=== PATIENT | female | born 1970 | race African-American/Black ===

== ENCOUNTER 2016-12-08 18:05 | Observation (INO) | payer MEDICARE, MEDICAID ==
[2016-12-08 18:47] LABS: #Basophils 0.1 thou/uL (0.0-0.2); #Eosinphils 0.2 thou/uL (0.0-0.7); #Lymphocytes 2.9 thou/uL (1.20-3.40); #Monocytes 1.1 thou/uL (0.11-0.59); #Neutrophils 5.9 thou/uL (1.40-6.50); %Basophils 0.7 % (0.0-1.0); %Eosinophils 1.7 % (0.0-10.0); %Lymphocytes 28.6 % (21.0-51.0); %Monocytes 10.9 % (0.0-10.0); Hematocrit 45.5 % (36.0-47.0); Mean Platelet Volume 6.4 fL (7.4-10.4); Red Blood Cell (RBC) Count 5.31 mill/uL (4.20-5.40); White Blood Cell (WBC) Count 10.1 thou/uL (4.8-10.8)
--- NOTE | 2016-12-08 18:52 | RAD ---
UPRIGHT PORTABLE CHEST ONE VIEW: 12/08/16 HISTORY: 46-year-old female with cough and shortness of breath. COMPARISON: 08/19/12. Heart size is normal. The lungs are clear of acute process. No confluent pneumonia or overt edema. IMPRESSION: No acute intrathoracic disease. Stable tracheostomy. Stable from prior study. POS: RAMIN
[2016-12-08 18:54] LABS: PTT 25.6 SEC (22.9-36.1); Prothrombin Time 13.4 SEC (12.0-14.7)
[2016-12-08 19:04] LABS: ALT (SGPT) 19 U/L (8-55); AST (SGOT) 19 U/L (5-34); Alkaline Phosphatase 146 U/L (40-150); Anion Gap 14 mmol/L (10-20); BUN (Urea Nitrogen) 13 mg/dL (7.0-18.7); Bilirubin, Total 0.2 mg/dL (0.2-1.2); Calc. Creatinine Clearance 0 mL/min (70-130); Carbon Dioxide 26 mmol/L (22-29); Chloride 105 mmol/L (98-107); Estimated GFR-MDRD 89; Globulin 4.5 g/dL (2.4-3.5); Protein, Total 8.6 g/dL (6.0-8.3)
[2016-12-08 19:11] LABS: Troponin I Less than 0.010 ng/mL (< 0.028)
--- NOTE | 2016-12-08 23:11 | PDOC.EVN ---
Event Note - Event Note Event Note: [id number] h&p dictated 2. SVT 2. HTN uncontrolled 3. Chronic respiratory failure 4. H/O CHF PLAN: SEE ORDERS
[2016-12-08] MEDS ORDERED: Azithromycin 500 MG VIAL ONE (23:16)
[2016-12-08] MEDS ORDERED: Acetaminophen 325 MG TAB PO PRN (23:34)
[2016-12-08] MEDS ORDERED: HYDROcodone/Acetaminophen 5/325 mg Tablet PO PRN (23:34)
[2016-12-08] MEDS ORDERED: cloNIDine 0.1 MG TAB PO PRN (23:37)
[2016-12-08] MEDS ORDERED: Sodium Chloride 0.9% 1,000 ML IV SCH (23:45)
[2016-12-09 00:28] VITALS: BMI 53.4
[2016-12-09 00:51] LABS: Troponin I 0.011 ng/mL (< 0.028)
[2016-12-09] MEDS ORDERED: Benzonatate 100 MG CAP PO PRN (00:55)
[2016-12-09] MEDS ORDERED: Carvedilol 25 MG TAB PO SCH ×2 (01:00→08:00)
[2016-12-09] MEDS ORDERED: cloNIDine 0.1 MG TAB PO SCH (01:00)
[2016-12-09 04:30] LABS: #Eosinphils 0.1 thou/uL (0.0-0.7); #Monocytes 0.9 thou/uL (0.11-0.59); #Neutrophils 6.6 thou/uL (1.40-6.50); %Basophils 0.2 % (0.0-1.0); %Eosinophils 1.1 % (0.0-10.0); %Lymphocytes 21.1 % (21.0-51.0); %Monocytes 9.3 % (0.0-10.0); Hematocrit 40.3 % (36.0-47.0); Mean Platelet Volume 6.4 fL (7.4-10.4); Red Blood Cell (RBC) Count 4.66 mill/uL (4.20-5.40); White Blood Cell (WBC) Count 9.6 thou/uL (4.8-10.8)
[2016-12-09 04:49] LABS: Anion Gap 11 mmol/L (10-20); BUN (Urea Nitrogen) 10 mg/dL (7.0-18.7); Calc. Creatinine Clearance 189 mL/min (70-130); Calcium 11.1 mg/dL (7.8-10.44); Carbon Dioxide 26 mmol/L (22-29); Chloride 106 mmol/L (98-107); Estimated GFR-MDRD Greater than 90
--- NOTE | 2016-12-09 06:46 | HP ---
DATE OF ADMISSION: 12/08/2016 CHIEF COMPLAINT: Dyspnea. HISTORY OF PRESENT ILLNESS: Patient is a 46-year-old female with past medical history of CHF, chronic respiratory failure, chronic trach, obstructive sleep apnea, hypertension, came to the ER because of tracheostomy clogged up. Patient says she is having diffuse secretions from the trach site. This evening her trach was clogged. She tried to use the suction at home, but it did not helped her and the patient started having cough as well as dyspnea also , so patient heart rate elevated up to 190, so patient was brought to the ER. Upon ER arrival, the patient had tracheal suction. Patient breathing did improve, cough improved, heart rate slowed down to 100. Patient denies any chest pain, denies any palpitations, denies any dizziness. She thinks her heart rate increased because of the coughing. Denies any fever, denies any chills. Denies any nausea. Denies any vomiting. PAST MEDICAL HISTORY: As per HPI. PAST SURGICAL HISTORY: , tracheostomy. FAMILY HISTORY: Positive for high blood pressure. SOCIAL HISTORY: Denies smoking, denies alcohol, denies any drugs. MEDICATIONS: Reviewed. REVIEW OF SYSTEMS: Constitutional: Denies any fever, denies any chills. Eyes : Denies any vision problems. Ears: Denies any hearing loss. Neck: Denies any neck pain. Cardiovascular system: Denies any chest pain. Denies any palpitations. Respiratory system: Positive for cough, positive for tracheal secretions. Cranial nerve system: Denies syncope. Psychiatric: Denies depression, denies anxiety. Integumentary: Denies any rash. Musculoskeletal: Denies any joint deformities. All other review of systems are reviewed and are negative. PHYSICAL EXAMINATION: CONSTITUTIONAL/VITAL SIGNS: At the time of H and P performed, blood pressure is 200/110, afebrile, heart rate 105. GENERAL APPEARANCE: This patient appears tired. HEENT: Anterior nares patent. Nose normal. Ears: Normal. Teeth intact. Tongue is moist. NECK: Positive for tracheostomy. CARDIOVASCULAR SYSTEM: S1, S2 present. Tachycardic, no murmurs, no rubs, no gallops. RESPIRATORY SYSTEM: Positive for crackles. Positive for rhonchi. No wheezing , no accessory muscle use seen. GASTROINTESTINAL: Abdomen is distended, soft, nontender, no guarding, no organomegaly, no masses felt. MUSCULOSKELETAL: No edema. INTEGUMENTARY: No rashes seen. PSYCHIATRIC: Mood is appropriate at this time. CRANIAL NERVES SYSTEM: Cranial nerves intact. Follows commands. Strength intact, sensory intact. LABORATORY DATA: At the time of H\T\P performed. white count 10.1, hemoglobin 14, platelet count is 483. PT 13.4, INR 1. D-dimer 0.27. Chest x-ray, no acute thoracic disease seen. ASSESSMENT AND PLAN: The patient is a 46-year-old female: 1. Tachycardia, appears to be SVT, resolved, probably secondary to clogged trach. Monitor heart rate closely. Will check d dimer. We will check BMP and mag level in the a.m. 2. Hypertension, uncontrolled. Continue home blood pressure medications. We will start patient on some Coreg at 6.25 b.i.d. also. 3. Status post history of trach plus chronic respiratory failure. Continue trach care. Continue breathing treatments. Monitor respiratory status closely. 4. History of hypertension. Continue blood pressure medications. 5. History of congestive heart failure. Continue home medications. Case was discussed in detail with the patient. Patient is FULL CODE. If patient is stable overnight, we will send patient home in a.m. MTDD
[2016-12-09] MEDS ORDERED: Potassium Chloride 8 MEQ TAB PO SCH (08:00)
[2016-12-09 08:07] VITALS: BP 150/92; TEMP 98.7
[2016-12-09] MEDS ORDERED: Furosemide 40 MG TAB PO SCH (09:00)
[2016-12-09] MEDS ORDERED: Amlodipine 10 MG TAB PO SCH (09:00)
[2016-12-09] MEDS ORDERED: hydrALAZINE 25 MG TAB PO SCH (09:00)
[2016-12-09] MEDS ORDERED: Famotidine 20 MG TAB PO SCH (09:00)
[2016-12-09] MEDS ORDERED: cloNIDine 0.2 MG TAB PO SCH (09:00)
[2016-12-09] MEDS ORDERED: Heparin 5,000 UNITS/ML VIAL SC SCH (09:00)
--- NOTE | 2016-12-09 11:19 | PDOC.PN ---
- Subjective Encounter Start Date: 12/09/16 Encounter Start Time: 11:17 Patient seen at bedside. No overnight events, no chest pain/SOB, no further secretions. - Objective MAR Reviewed: Yes Vital Signs & Weight: Vital Signs (12 hours) Temp Pulse Resp BP BP Pulse Ox 12/09/16 08:10 98.7 F 79 16 12/09/16 08:00 98.7 F 79 16 150/92 H 97 12/09/16 03:56 98.5 F 84 136/92 H 98 12/09/16 01:10 164/101 H 12/09/16 00:38 113 H 180/110 H 12/08/16 23:57 99 F 105 H 20 175/104 H 99 Weight Weight 264 lb 9.6 oz I&O: 12/08/16 12/09/16 12/10/16 06:59 06:59 06:59 Intake Total 574 Output Total 300 Balance 274 Result Diagrams: 12/09/16 03:56 12/09/16 03:56 Phys Exam - Physical Examination Constitutional: NAD Obese individual Trach in place Neck: no JVD Respiratory: clear to auscultation bilateral Cardiovascular: RRR Gastrointestinal: soft Musculoskeletal: pulses present Neurological: moves all 4 limbs Psychiatric: A&O x 3 Dx/Plan (1) Tachycardia Code(s): R00.0 - TACHYCARDIA, UNSPECIFIED Status: Resolved (2) Tracheostomy complication, unspecified Code(s): J95.00 - UNSPECIFIED TRACHEOSTOMY COMPLICATION Status: Resolved (3) Hypertension Code(s): I10 - ESSENTIAL (PRIMARY) HYPERTENSION Status: Chronic (4) Obesity Code(s): E66.9 - OBESITY, UNSPECIFIED Status: Chronic - Plan cont current plan of care, plan discussed w/ family, respiratory therapy * No further tachycardia. No chest pain. After speaking with the patient this seemed to be transient due to anxiety over sputum clearance. Currently no fevers , no further tachycardia or symptoms. * Add coreg * Duonebs * D/C Home * To f/u with Dr. Gonzales at [facility]
--- NOTE | 2016-12-09 16:11 | DIS ---
DATE OF OBSERVATION AND PLACEMENT: 12/08/2016 DATE OF DISCHARGE: 12/09/2016 DISCHARGE DISPOSITION: Home. DISCHARGE FOLLOWUP: With Dr. Gonzales. Patient states she will make her own appointment. DISCHARGE DIAGNOSES: 1. Tachycardia secondary to anxiety. 2. Increased secretions from her tracheostomy. 3. Hypertension. 4. Obesity. 5. History of tracheostomy. 6. Obstructive sleep apnea. DISCHARGE MEDICATIONS: 1. Amlodipine 10 mg p.o. daily. 2. Atorvastatin 20 mg p.o. at bedtime. 3. Lasix 40 mg p.o. daily. 4. Coreg 6.25 mg p.o. b.i.d. 5. Xopenex p.r.n. 6. Potassium chloride 8 mEq p.o. daily. 7. Catapres 0.2 mg p.o. t.i.d. 8. Hydralazine 50 mg p.o. t.i.d. INPATIENT CONSULTATIONS: None. INPATIENT RADIOGRAPHIC EXAMINATIONS: Chest x-ray, which revealed no acute intrathoracic disease. T here is a stable tracheostomy. There was no acute process. INPATIENT PROCEDURES: None. BRIEF HOSPITAL COURSE: Ms. Palma Leonardo is a 46-year-old female with a past medical history of tracheostomy, obstructive sleep apnea, hypertension and obesity, who presents to the emergency room after having difficulty with secretions from her trach site. She states that her tracheostomy was c logged and tried to use her home suction; however, the apparatus was broken. She tried to lubricate her secretions, but this was unsuccessful. She was brought to the ER where a successful suction wa s performed. Transiently, the patient had a reported heart rate of 190; however, after she was suct ioned this went down to below 100s. She denied any chest pain, shortness of breath or dizziness. S he was then subsequently placed into observation onto the telemetry floor where she was monitored. She no longer had any further arrhythmias. She had no shortness of breath or chest pain. Two sets of cardiac enzymes were ordered and were negative. She is asymptomatic at this time. She feels michelle t she is back to her baseline. There is no coughing. There are no excessive secretions. There hav e been no tachycardia and arrhythmias on the monitor. She is wanting to go home and is clinically a ppropriate for discharge home and she states she will follow up with her ENT, Dr. Gonzales as an outpa tient. She did have some mild elevation of her blood pressure for which Coreg was started. She res ponded appropriately. She is feeling much better and will be clinically discharged home later today in a stable condition. DISCHARGE DIET: Heart healthy. ACTIVITY: As tolerated. RESTRICTIONS: None. CODE STATUS: FULL CODE. ALLERGIES: No known drug allergies. DISCHARGE INSTRUCTIONS: I have explained all this to the patient as well as the family members at [facility]. They are agreeable to the plan of discharge. All questions have been answered. I have krystal d her if she experiences any further increased secretions, having any dyspnea, shortness of breath o r palpitation, she should contact her PCP or return back to an urgent care center or an emergency ro om. She is agreeable to this plan. All questions have been answered. Time required to prepare for her discharge 33 minutes.
[2016-12-09] MEDS ORDERED: Carvedilol 6.25 MG TAB PO SCH (17:00)
[2016-12-09] MEDS ORDERED: Atorvastatin Calcium 20 MG TAB PO SCH (21:00)
--- NOTE | 2016-12-10 11:43 | EKG ---
Test Reason : Blood Pressure : / mmHG Vent. Rate : 071 BPM Atrial Rate : 071 BPM P-R Int : 186 ms QRS Dur : 090 ms QT Int : 360 ms P-R-T Axes : 056 014 012 degrees QTc Int : 391 ms Normal sinus rhythm with sinus arrhythmia Normal ECG When compared with ECG of 19-AUG-2012 20:30, Vent. rate has decreased BY [address] Chetna URIBE ([id number]) on 12/10/2016 11:43:25 AM Referred By: MIKI Confirmed By:DR. Chetna URIBE
--- NOTE | 2016-12-22 12:18 | EKG ---
Test Reason : Blood Pressure : / mmHG Vent. Rate : 133 BPM Atrial Rate : 133 BPM P-R Int : 162 ms QRS Dur : 078 ms QT Int : 268 ms P-R-T Axes : 054 008 027 degrees QTc Int : 398 ms Sinus tachycardia Possible Left atrial enlargement Low voltage QRS Borderline ECG Confirmed by DEB GAN MD ([id number]), news editor JACOB VILLEDA ([id number]) on 12/22/2016 12:18:35 PM Referred By: Confirmed By:DEB GAN MD
== END 2016-12-09 11:51 | disposition home or self-care (01) ==
LOC: ERS 18:05 → 2SW 22:40
PROVIDERS: ADMIT Internal Medicine; ATTEND Internal Medicine
DX: J95.09 Other tracheostomy complication (principal); F41.9 Anxiety disorder, unspecified; R00.0 Tachycardia, unspecified; E66.9 Obesity, unspecified; G47.33 Obstructive sleep apnea (adult) (pediatric); I11.0 Hypertensive heart disease with heart failure; I50.9 Heart failure, unspecified; J96.10 Chronic respiratory failure, unspecified whether with hypoxia or hypercapnia; Z68.43 Body mass index [BMI] 50.0-59.9, adult; Z79.899 Other long term (current) drug therapy; Z98.890 Other specified postprocedural states
CPT/HCPCS: 71010; 80048; 80053; 82550; 82553; 83735; 83880; 84484 ×2; 85025 ×2; 85379; 85610; 85730; 93005 ×2; 94640; 94760; 96361 ×2; 96365; 99285; G0378; 36415; 93010; J0456; J1644; J7620

== ENCOUNTER 2016-12-31 12:15 | Emergency (ER) | payer MEDICARE, MEDICAID ==
[2016-12-31] MEDS ORDERED: Sodium Chloride For Inhalation 0.9% 3 ML NEB ONE (13:06)
[2016-12-31 13:11] LABS: Mean Platelet Volume 6.4 fL (7.4-10.4); Red Blood Cell (RBC) Count 5.02 mill/uL (4.20-5.40); White Blood Cell (WBC) Count 6.6 thou/uL (4.8-10.8)
--- NOTE | 2016-12-31 13:23 | RAD ---
PORTABLE UPRIGHT CHEST 1 VIEW: Date: 12/31/16 HISTORY: 46-year-old female with dyspnea. COMPARISON: 12/08/16. FINDINGS: Tracheostomy tube in place. Minimal cardiomegaly. No confluent pneumonia, overt edema, or pleural eff usion. IMPRESSION: Cardiomegaly. No acute intrathoracic disease. Overall stable from prior study. POS: MARGA[facility]
[2016-12-31 13:28] LABS: Lactic Acid - Sepsis 0.9 mmol/L (0.5-2.2)
[2016-12-31 13:30] LABS: Band 5 % (5-11); Neutrophil 57 % (42-75); Reactive Lymphocytes 6 % (0-10)
[2016-12-31 13:32] LABS: ALT (SGPT) 19 U/L (8-55); AST (SGOT) 19 U/L (5-34); Alkaline Phosphatase 134 U/L (40-150); Anion Gap 12 mmol/L (10-20); BUN (Urea Nitrogen) 11 mg/dL (7.0-18.7); Bilirubin, Total 0.2 mg/dL (0.2-1.2); CK (CPK) 210 U/L (29-168); Calc. Creatinine Clearance 0 mL/min (70-130); Calcium 11.2 mg/dL (7.8-10.44); Carbon Dioxide 24 mmol/L (22-29); Chloride 102 mmol/L (98-107); Estimated GFR-MDRD Greater than 90; Globulin 4.5 g/dL (2.4-3.5); Protein, Total 8.3 g/dL (6.0-8.3)
[2016-12-31 13:34] LABS: Troponin I Less than 0.010 ng/mL (< 0.028)
== END 2016-12-31 14:49 | disposition home or self-care (01) ==
LOC: ERS 12:15
DX: J98.09 Other diseases of bronchus, not elsewhere classified (principal); I11.0 Hypertensive heart disease with heart failure; I50.9 Heart failure, unspecified; E66.9 Obesity, unspecified
CPT/HCPCS: 36415; 71010; 80053; 82550; 82553; 83605; 83880; 84484; 85025; 87040; 93005; 94640; 94760